=== PATIENT | female | born 1985 | race Caucasian/White ===

== ENCOUNTER → 2017-12-11 | Emergency (ER) | payer OTHER ==
[~2017-12-11] MED LIST: morphine CARPU-JECT 4 MG/1 ML DISP.SYRIN IVPUSH ONE; morphine SULFATE 4 MG/ML VIAL ONE
[2017-12-11 19:35] VITALS: BMI 41.0
[2017-12-11 21:22] LABS: RDW 12.7 % (11.6-15.6)
[2017-12-11 21:28] LABS: BASO % 0.2 % (0-2.0); EOS % 1.3 % (0-4.5); HEMATOCRIT 36.9 % (32.4-45.2); HEMOGLOBIN 12.8 GM/dl (10.7-15.3); LYMPH % 12.9 % (8-40); MCH 30.2 pg (25.7-33.7); MCHC 34.7 g/dl (32.0-36.0); MONO % 4.3 % (3.8-10.2); NEUT % 81.3 % (42.8-82.8); PLATELET COUNT 369 K/MM3 (134-434); RBC 4.24 M/mm3 (3.60-5.2); WHITE BLOOD COUNT 12.6 K/mm3 (4.0-10.8)
--- NOTE | 2017-12-11 21:30 | PDOC ---
History of Present Illness - General Chief Complaint: Injury Stated Complaint: LEFT KNEE INJURY Time Seen by Provider: 12/11/17 19:34 - History of Present Illness Initial Comments: 12/12/17 02:16 The patient is a 32 year old female, with no significant past medical history, who presents to the emergency department s/p fall with pain to the left knee. As per patient, she was [place] the park when she was running on a circular apparatus unaware that it moves when she lost balance and fell. Upon falling, she reports hearing a popping sound in her left knee. After the fall she reports nausea without emesis that has since resolved. The patient reports significant pain and edema to the lateral and dorsal aspects of her left knee. Denies any other injuries, no headstrike. She denies recent fevers, chills, headache or dizziness. She denies recent vomit , diarrhea or constipation. She denies recent dysuria, frequency, urgency or hematuria. She denies recent chest pain or shortness of breath. Allergies: NKA Past surgical history: None reported. Social history: Nonsmoker. Denies EtOH use and recreational drug use. Past History - Past Medical History Allergies/Adverse Reactions: Allergies Allergy/AdvReac Type Severity Reaction Status Date / Time No Known Allergies Allergy Verified 12/11/17 19:32 Home Medications: Ambulatory Orders Control Pills 1 tab PO ASDIR 12/11/17 COPD: No - Surgical History Abdominal Surgery: Yes (HERNIA SX) - Suicide/Smoking/Psychosocial Hx Smoking History: Never smoked Hx Alcohol Use: No Drug/Substance Use Hx: No Review of Systems - Review of Systems Comments:: 12/12/17 02:17 GENERAL/CONSTITUTIONAL: No fever or chills. No weakness. HEAD, EYES, EARS, NOSE AND THROAT: No change in vision. No ear pain or discharge. No sore throat. GASTROINTESTINAL: No nausea, vomiting, diarrhea or constipation. GENITOURINARY: No dysuria, frequency, or change in urination. CARDIOVASCULAR: No chest pain or shortness of breath. RESPIRATORY: No cough, wheezing, or hemoptysis. (+)MUSCULOSKELETAL: Knee pain and swelling. No neck or back pain. SKIN: No rash NEUROLOGIC: No headache, vertigo, loss of consciousness, or change in strength/ sensation. ENDOCRINE: No increased thirst. No abnormal weight change. HEMATOLOGIC/LYMPHATIC: No anemia, easy bleeding, or history of blood clots. ALLERGIC/IMMUNOLOGIC: No hives or skin allergy. *Physical Exam - Vital Signs Last Vital Signs Temp Pulse Resp BP Pulse Ox 98.1 F 87 18 0/0 100 12/11/17 19:30 12/11/17 19:30 12/11/17 19:30 12/11/17 19:30 12/11/17 19:30 - Physical Exam Comments: 12/12/17 02:19 GENERAL: Awake, alert, and fully oriented, in no acute distress HEAD: No signs of trauma EYES: PERRLA, EOMI, sclera anicteric, conjunctiva clear ENT: Auricles normal inspection, hearing grossly normal, nares patent, oropharynx clear without exudates. Moist mucosa NECK: Normal ROM, supple, no lymphadenopathy, JVD, or masses LUNGS: Breath sounds equal, clear to auscultation bilaterally. No wheezes, and no crackles HEART: Regular rate and rhythm, normal S1 and S2, no murmurs, rubs or gallops ABDOMEN: Soft, nontender, normoactive bowel sounds. No guarding, no rebound. No masses EXTREMITIES: L knee with sig edema and limited ROM. Compartments are soft. L foot with 1+ DP pulse, 2+ TP pulse (marked with pen). R foot with 2+DP/TP pulse. Otherwise: normal range of motion, no edema. No clubbing or cyanosis. No cords, erythema, or tenderness BACK: No midline spinal tenderness in cervical/thoracic/lumbar region NEUROLOGICAL: Normal speech, cranial nerves intact, negative pronator drift, 5/ 5 strength in all 4 extremities, normal sensation to light touch in all 4 extremities, normal cerebellar exam, normal gait, normal reflexes and tone SKIN: Warm, Dry, normal turgor, no rashes or lesions noted. ED Treatment Course - LABORATORY CBC & Chemistry Diagram: 12/11/17 21:10 12/11/17 21:10 - Medications Given in the ED: ED Medications Discontinued Medications Generic Name Dose Route Start Last Admin Trade Name Freq PRN Reason Stop Dose Admin Morphine Sulfate 4 mg 12/11/17 20:53 12/11/17 21:15 Morphine Injection - IVPUSH 12/11/17 20:54 4 mg ONCE ONE Administration Medical Decision Making - Medical Decision Making 12/11/17 21:19 32yo F presents to the ED with severe L knee pain after landing on her twisted knee. Vitals wnl. Left foot 1+ DP and 2+TP pulses present and marked by pen. DP pulse slightly stronger on R foot. Compartments are soft. Labs, preg test ordered. XR pending, pt may need CTA to r/o vasc injury, possibly in setting of knee dislocation. 12/12/17 00:29 XR with likely tibial plateau fracture. Per histotechnologist supervisor, our CT scanner can not perform a CTA on LE. Case discussed with Dr. Currie who recommends transfer for vascular c/s as pt can not have CTA here. [facility] has been called, we are awaiting a call back. NV status at this time is unchanged. Compartments continue to be soft. Pain controlled with morphine 12/12/17 00:[address] Milind Munguia from [facility] vascular surgery who accepts pt for transfer to ER. Transfer center will inform the ER of case. Pt has been consented for transfer. NV status unchanged, compartments soft. Pain controlled with morphine. 12/12/17 01:50 [facility] here to transport patient. No change in NV status, compartments soft. *DC/Admit/Observation/Transfer Diagnosis at time of Disposition: Fracture of tibial plateau, closed - Discharge Dispostion Disposition: TRANSFER ACUTE CARE/OTHER HOSP Condition at time of disposition: Stable - Referrals - Patient Instructions - Post Discharge Activity - Transfer to Acute Care Facility Receiving Facility: [facility]. - Attestations Physician Attestion: 12/12/17 07:21 I, Dr. Shari Hua MD, attest that this document has been prepared under my direction and personally reviewed by me in its entirety. I further attest, that it accurately reflects all work, treatment, procedures and medical decision -making performed by me.
[2017-12-11 21:35] LABS: ALBUMIN 3.3 g/dl (3.5-5.0); ALK PHOS 76 U/L (32-92); ANION GAP 12 (8-16); BLOOD UREA NITROGEN 16 mg/dl (7-18); CALCIUM 8.6 mg/dl (8.4-10.2); CHLORIDE 103 mmol/L (98-107); CO2 21 mmol/L (22-28); CREATININE 0.9 mg/dl (0.6-1.3); GLUCOSE,RANDOM 107 mg/dl (74-106); SGOT/AST 26 U/L (10-42); SGPT/ALT 26 U/L (10-40); SODIUM 136 mmol/L (136-145); TOT PROT 6.8 g/dl (6.4-8.3)
[2017-12-11 21:40] LABS: ACTIVATED PTT 23.6 SECONDS (24.0-38.9)
[2017-12-11 21:44] LABS: INR 0.99 (0.82-1.09); PROTHROMBIN TIME (PATIENT) 11.1 SEC (10.2-13.0)
[2017-12-11 21:50] LABS: BILIRUBIN,TOTAL < 0.5 mg/dl (0.2-1.0)
[2017-12-12 01:17] VITALS: BP 120/75; PULSE 109; TEMP 98.2
== END | disposition short-term general hospital (02) ==
LOC: FER 19:30
PROC: 3E033NZ Introduction of Analgesics, Hypnotics, Sedatives into Peripheral Vein, Percutaneous Approach (ICD-10-PCS; principal; 2017-12-11)
DX: S82.142A Displaced bicondylar fracture of left tibia, initial encounter for closed fracture (principal); W17.89XA Other fall from one level to another, initial encounter; Y93.89 Activity, other specified; Y92.830 Public park as the place of occurrence of the external cause
CPT/HCPCS: 36415; 73562-TC-LT-FY; 80053; 84703; 85025; 85610; 85730; 86850; 86900; 86901; 99282-25